=== PATIENT | female | born 1945 | race African-American/Black ===

== ENCOUNTER 2017-01-01 10:15 | Inpatient (IN) | payer BC, OTHER ==
[~2017-01-01] VITALS: Ht 165.1 cm; Wt 62.6 kg
[2017-01-01] MEDS ORDERED: FAMO40TA7 PO (10:21)
[2017-01-01] MEDS ORDERED: DIGO125T82 PO (10:21)
[2017-01-01] MEDS ORDERED: CITA20TA11 PO (10:21)
[2017-01-01] MEDS ORDERED: WARF5TAB73 PO (10:21)
[2017-01-01] MEDS ORDERED: MIDO2.5T PO (10:21)
[2017-01-01] MEDS ORDERED: ACET-2178 PO (10:21)
[2017-01-01] MEDS ORDERED: ATOR-2 PO (10:21)
[2017-01-01] MEDS ORDERED: ONDANSETRON HCL 4MG/2ML VIAL IV STA (10:46)
[2017-01-01] MEDS ORDERED: KETOROLAC 15MG/ML VIAL IV ONE (11:00)
[2017-01-01 11:31] LABS: BASOPHILS % 0.4 % (0.0-2.0); EOSINOPHILS % 1.8 % (0.0-5.0); HEMOGLOBIN. 13.4 g/dL (12.0-16.0); LYMPHOCYTES % 23.6 % (20.0-50.0); MEAN CORPUSCULAR HEMOGLOBIN 30.1 pg (28.0-32.0); MEAN CORPUSCULAR VOLUME 89.9 fL (81.0-99.0); MEAN PLATELET VOLUME 9.7 fl (7.4-10.4); MONOCYTES % 2.9 % (2.0-8.0); NEUTROPHILS % 71.3 % (40.0-76.0); PLATELET 196 x1000/uL (130-400); RED BLOOD CELL COUNT 4.45 mill/uL (4.2-5.4); RED CELL DISTRIBUTION WIDTH 14.2 % (11.6-14.6)
[2017-01-01 11:46] LABS: CARBON DIOXIDE 29 mEq/L (21-32); CHLORIDE 108 mEq/L (98-107); TROPONIN I < 0.02 ng/mL (0.00-0.04)
[2017-01-01 12:14] LABS: INR 3.5; PROTHROMBIN TIME 35.9 sec (9.4-11.6)
[2017-01-01] MEDS ORDERED: LORAZEPAM 2MG/ML CPJ IV PRN (15:30)
[2017-01-01] MEDS ORDERED: CLONIDINE 0.1MG TABLET PO PRN (15:30)
[2017-01-01] MEDS ORDERED: IPRATROPIUM/ALBUTEROL 0.5-3(2.5)MG/3ML NEB INH PRN (15:30)
[2017-01-01] MEDS ORDERED: DOCUSATE SODIUM 100MG CAPSULE PO PRN (15:30)
[2017-01-01] MEDS ORDERED: NA PHOS,M-B/NA PHOS,DI-BA ENEMA 118ML PR PRN (15:30)
[2017-01-01] MEDS ORDERED: DIPHENHYDRAMINE 50MG/ML VIAL IV PRN (15:30)
[2017-01-01] MEDS ORDERED: MAGNESIUM/ALUMINUM HYDROXIDE/SIMETHICONE 30ML UDC PO PRN (15:30)
[2017-01-01] MEDS ORDERED: MORPHINE SULFATE 2 MG/ML CPJ (NOT FOR IM USE) IV PRN ×2 (15:30→16:30)
[2017-01-01] MEDS ORDERED: ONDANSETRON HCL 4MG/2ML VIAL IV PRN (15:30)
[2017-01-01] MEDS ORDERED: GUAIFENESIN 200MG/10ML SUGAR FREE UDC PO PRN (15:30)
[2017-01-01 16:10] VITALS: BP 94/55
[2017-01-01] MEDS ORDERED: HYDROCODONE/ACETAMINOPHEN 10/325MG TABLET PO PRN (17:15)
[2017-01-01] MEDS ORDERED: MORPHINE SULFATE 4 MG/ML CPJ (NOT FOR IM USE) IV PRN (17:45)
[2017-01-01] MEDS: DIGOXIN 125MCG TABLET PO SCH (18:00)
[2017-01-01] MEDS: TRAMADOL 50MG TABLET PO PRN (18:47)
[2017-01-01 19:34] VITALS: BP 97/60
[2017-01-01] MEDS ORDERED: ZOLPIDEM TARTRATE 5MG TABLET PO PRN (20:30)
[2017-01-01] MEDS: FAMOTIDINE 20MG/2ML VIAL IV SCH (20:39)
[2017-01-01] MEDS ORDERED: LEVE500T19 PO (21:21)
[2017-01-01] MEDS ORDERED: POTA10CA42 PO (21:29)
[2017-01-02] VITALS: BP 90/52
[2017-01-02 04:00] VITALS: BP 93/55
[2017-01-02] MEDS: TRAMADOL 50MG TABLET PO PRN (06:42)
[2017-01-02 08:00] VITALS: BP 105/51
[2017-01-02] MEDS ORDERED: ZINC SULFATE 220 MG ( 50 ) CAPSULE PO SCH (09:00)
[2017-01-02] MEDS: FAMOTIDINE 20MG/2ML VIAL IV SCH (09:05)
[2017-01-02 11:41] LABS: INR 3.8; PROTHROMBIN TIME 39.2 sec (9.4-11.6)
[2017-01-02 12:00] VITALS: BP 91/58
[2017-01-02 16:05] VITALS: BP 89/51
[2017-01-02] MEDS: ACETAMINOPHEN 325MG TABLET PO PRN ×2 (16:21→19:51)
[2017-01-02 17:59] VITALS: BP 89/51
[2017-01-02] MEDS: DIGOXIN 125MCG TABLET PO SCH (18:55)
[2017-01-02 20:02] LABS: CLARITY URINE TURBID (CLEAR); COLOR URINE ORANGE (YELLOW); GLUCOSE URINE NEGATIVE (NEGATIVE); KETONES URINE NEGATIVE (NEGATIVE); LEUKOCYTE ESTERASE URINE 2+ (NEGATIVE); NITRITE URINE NEGATIVE (NEGATIVE); OCCULT BLOOD URINE 2+ (NEGATIVE); PH URINE 5.5 (4.5-8.0); PROTEIN URINE 2+ (NEGATIVE); SPECIFIC GRAVITY URINE 1.027 (1.005-1.030)
== END 2017-01-02 20:00 | disposition short-term general hospital (02) | DRG 543 ==
LOC: ER 10:37 → 6EST 13:12 → ENRESERV 15:30 → 6EST 16:58
PROVIDERS: ADMIT Internal Medicine; ATTEND Internal Medicine
DX: M48.56XA Collapsed vertebra, not elsewhere classified, lumbar region, initial encounter for fracture (principal); I69.354 Hemiplegia and hemiparesis following cerebral infarction affecting left non-dominant side; I48.91 Unspecified atrial fibrillation; E11.9 Type 2 diabetes mellitus without complications; I10 Essential (primary) hypertension; E78.00 Pure hypercholesterolemia, unspecified; M81.0 Age-related osteoporosis without current pathological fracture; Z74.01 Bed confinement status; Z79.01 Long term (current) use of anticoagulants; Z86.718 Personal history of other venous thrombosis and embolism; Z88.6 Allergy status to analgesic agent; Z79.899 Other long term (current) drug therapy
CPT/HCPCS: 36415; 71010; 72100; 72148; 80053; 80061; 81001; 82652; 83036; 83880; 84484; 85025; 85610; 87086; 93005; 96374; 96375; 99285; J1885; J2405; J3490

== ENCOUNTER 2019-07-20 10:00 | Inpatient (IN) | payer OTHER ==
[~2019-07-20] VITALS: Ht 165.1 cm; Wt 56.3 kg
[~2019-07-20 10:00] MED LIST: ATOR-2 PO; CITA20TA75 PO; DIGO125T PO; FAMO40TA7 PO; LEVE500T19 PO; MIDO2.5T PO; POTA10CA42 PO; TOPUD PO; WARF-53 PO
[2019-07-20] MEDS ORDERED: PIPERACILLIN/TAZ 3.375G PREMIX 50 ML IV ONE (10:30)
[2019-07-20] MEDS ORDERED: LEVOFLOXACIN 750MG PREMIX 150 ML IV ONE (10:30)
[2019-07-20] MEDS ORDERED: SODIUM CHLORIDE 0.9% 1000ML BAG (SEPSIS BOLUS) IV ONE (10:30)
[2019-07-20 11:04] LABS: CHLORIDE 118 mEq/L (98-107)
[2019-07-20 11:05] LABS: BASOPHILS % 0.4 % (0.0-2.0); EOSINOPHILS % 0.1 % (0.0-5.0); HEMATOCRIT. 37.9 % (36.0-48.0); HEMOGLOBIN. 12.7 g/dL (12.0-16.0); LYMPHOCYTES % 10.8 % (20.0-50.0); MEAN CORPUSCULAR HEMOGLOBIN 30.7 pg (28.0-32.0); MEAN CORPUSCULAR VOLUME 91.3 fL (81.0-99.0); MEAN PLATELET VOLUME 10.4 fl (7.4-10.4); MONOCYTES % 6.1 % (2.0-8.0); NEUTROPHILS % 82.6 % (40.0-76.0); PLATELET 151 x1000/uL (130-400); RED BLOOD CELL COUNT 4.15 mill/uL (4.2-5.4)
[2019-07-20 13:25] LABS: D-DIMER 5.68 mg/L FEU (<0.50); INR 3.7; PROTHROMBIN TIME 38.8 sec (9.6-11.0)
[2019-07-20 15:42] LABS: CLARITY URINE CLOUDY (CLEAR); COLOR URINE YELLOW (YELLOW); KETONES URINE NEGATIVE (NEGATIVE); LEUKOCYTE ESTERASE URINE 2+ (NEGATIVE); NITRITE URINE POSITIVE (NEGATIVE); OCCULT BLOOD URINE 3+ (NEGATIVE); PH URINE 7.5 (4.5-8.0); PROTEIN URINE 2+ (NEGATIVE); SPECIFIC GRAVITY URINE 1.022 (1.005-1.030)
[2019-07-20] MEDS ORDERED: LEVETIRACETAM 500 MG in SODIUM CHLORIDE 0.9% 100 ML IV SCH (19:15)
[2019-07-20] MEDS ORDERED: ONDANSETRON HCL 4MG/2ML INJ IV PRN (19:15)
[2019-07-20] MEDS ORDERED: ACETAMINOPHEN 325MG TABLET PO PRN ×2 (19:15)
[2019-07-20] MEDS: DEXT 5%/0.2% NACL 1,000 ML IV SCH (19:15)
[2019-07-20] MEDS ORDERED: DIPHENHYDRAMINE 50MG/ML VIAL IV PRN (19:15)
[2019-07-20] MEDS ORDERED: ATORVASTATIN CALCIUM 40MG TABLET PO SCH (20:00)
[2019-07-20] MEDS ORDERED: AZITHROMYCIN 500 MG in DEXT 5% WATER 250 ML IV SCH (20:00)
[2019-07-20] MEDS ORDERED: FAMOTIDINE 20MG/2ML VIAL IV SCH (21:00)
[2019-07-20] MEDS: LEVETIRACETAM 500MG PREMIX 100 ML IV SCH (21:00)
[2019-07-20] MEDS ORDERED: NOREPINEPHRINE 4 MG in DEXT 5% WATER 246 ML IV ONE (21:45)
[2019-07-21] VITALS (60 sets, daily range): BP systolic 98–134; BP diastolic 44–86
[2019-07-21] MEDS: DEXT 5%/0.2% NACL 1,000 ML IV SCH ×2 (03:41→10:55)
[2019-07-21 05:18] LABS: HEMATOCRIT. 33.2 % (36.0-48.0); MEAN CORPUSCULAR HEMOGLOBIN 30.3 pg (28.0-32.0); MEAN CORPUSCULAR VOLUME 91.8 fL (81.0-99.0); PLATELET 117 x1000/uL (130-400); RED BLOOD CELL COUNT 3.62 mill/uL (4.2-5.4); RED CELL DISTRIBUTION WIDTH 14.3 % (11.6-14.6)
[2019-07-21 05:25] LABS: CHLORIDE 116 mEq/L (98-107)
[2019-07-21 05:36] LABS: PHOSPHORUS 2.9 mg/dL (2.5-4.9)
[2019-07-21 05:44] LABS: PROTHROMBIN TIME 87.5 sec (9.6-11.0)
[2019-07-21 06:44] LABS: INR 8.6
[2019-07-21] MEDS ORDERED: PHYTONADIONE 10MG/ML AMP SUBCUT SCH (07:00)
[2019-07-21] MEDS ORDERED: DEXTROSE 50% WATER 50ML SYRINGE IV PRN (07:00)
[2019-07-21] MEDS ORDERED: VANCOMYCIN 1 G PREMIX 200 ML IV SCH (09:00)
[2019-07-21] MEDS: CITALOPRAM HYDROBROMIDE 10MG TABLET PO SCH (09:55)
[2019-07-21] MEDS: FAMOTIDINE 20MG/2ML VIAL IV SCH (09:55)
[2019-07-21] MEDS: INSULIN LISPRO 100 UNITS/ML SUBCUT SCH ×5 (09:56→21:00)
[2019-07-21] MEDS: LEVETIRACETAM 500MG PREMIX 100 ML IV SCH ×2 (10:55→23:35)
[2019-07-21] MEDS: BLOOD SUGAR DIAGNOSTIC STRIP TEST SCH ×3 (11:30→21:00)
[2019-07-21 13:56] LABS: PLATELET ESTIMATE DECREASED
[2019-07-21] MEDS: CEFTRIAXONE 1 G PREMIX 50 ML IV SCH (17:58)
[2019-07-21] MEDS ORDERED: AZITHROMYCIN 500 MG in DEXT 5% WATER 250 ML IV SCH (20:00)
[2019-07-21] MEDS: ATORVASTATIN CALCIUM 40MG TABLET PO SCH ×2 (21:00→22:46)
[2019-07-21] MEDS: DIGOXIN 500MCG/2ML AMP IV SCH (22:46)
[2019-07-21] MEDS: AZITHROMYCIN 250 MG in DEXT 5% WATER 250 ML IV SCH (23:35)
[2019-07-22] VITALS: BP 99/65
[2019-07-22 04:00] VITALS: BP 101/64
[2019-07-22] MEDS: BLOOD SUGAR DIAGNOSTIC STRIP TEST SCH ×4 (06:58→21:21)
[2019-07-22] MEDS: INSULIN LISPRO 100 UNITS/ML SUBCUT SCH ×4 (07:10→21:00)
[2019-07-22 08:00] VITALS: BP 104/53
[2019-07-22] MEDS: FAMOTIDINE 20MG/2ML VIAL IV SCH (10:38)
[2019-07-22] MEDS: CITALOPRAM HYDROBROMIDE 10MG TABLET PO SCH (10:38)
[2019-07-22] MEDS: LEVETIRACETAM 500MG PREMIX 100 ML IV SCH ×2 (12:44→21:21)
[2019-07-22] MEDS ORDERED: VANCOMYCIN 1,000 MG in DEXT 5% WATER 250 ML IV SCH (14:00)
[2019-07-22] MEDS: DEXT 5%/0.2% NACL 1,000 ML IV SCH ×2 (14:47→19:04)
[2019-07-22 16:00] VITALS: BP 103/72
[2019-07-22 16:18] LABS: INR 1.5
[2019-07-22] MEDS: DIGOXIN 500MCG/2ML AMP IV SCH (17:01)
[2019-07-22] MEDS: CEFTRIAXONE 1 G PREMIX 50 ML IV SCH (17:03)
[2019-07-22 17:07] LABS: HEMATOCRIT. 35.4 % (36.0-48.0); HEMOGLOBIN. 11.9 g/dL (12.0-16.0); MEAN CORPUSCULAR VOLUME 95.2 fL (81.0-99.0); MEAN PLATELET VOLUME 11.9 fl (7.4-10.4); PLATELET 96 x1000/uL (130-400); RED BLOOD CELL COUNT 3.72 mill/uL (4.2-5.4); RED CELL DISTRIBUTION WIDTH 14.5 % (11.6-14.6)
[2019-07-22 20:00] VITALS: BP 109/70
[2019-07-22] MEDS: AZITHROMYCIN 250 MG in DEXT 5% WATER 250 ML IV SCH (21:21)
[2019-07-22 22:33] LABS: PLATELET ESTIMATE DECREASED
[2019-07-23] VITALS: BP 104/74
[2019-07-23] MEDS: DEXT 5%/0.2% NACL 1,000 ML IV SCH ×2 (02:44→11:57)
[2019-07-23 04:00] VITALS: BP 110/76
[2019-07-23 06:26] LABS: BASOPHILS % 0.2 % (0.0-2.0); EOSINOPHILS % 1.8 % (0.0-5.0); HEMATOCRIT. 32.2 % (36.0-48.0); HEMOGLOBIN. 11.2 g/dL (12.0-16.0); LYMPHOCYTES % 7.5 % (20.0-50.0); MEAN CORPUSCULAR HEMOGLOBIN 31.4 pg (28.0-32.0); MEAN CORPUSCULAR VOLUME 90.6 fL (81.0-99.0); MEAN PLATELET VOLUME 11.2 fl (7.4-10.4); MONOCYTES % 4.3 % (2.0-8.0); NEUTROPHILS % 86.2 % (40.0-76.0); PLATELET 91 x1000/uL (130-400); RED BLOOD CELL COUNT 3.55 mill/uL (4.2-5.4); RED CELL DISTRIBUTION WIDTH 14.1 % (11.6-14.6)
[2019-07-23 06:27] LABS: INR 1.3; PROTHROMBIN TIME 14.3 sec (9.6-11.0)
[2019-07-23] MEDS: BLOOD SUGAR DIAGNOSTIC STRIP TEST SCH ×3 (06:38→17:20)
[2019-07-23] MEDS: INSULIN LISPRO 100 UNITS/ML SUBCUT SCH ×3 (06:38→17:40)
[2019-07-23 08:00] VITALS: BP 110/76
[2019-07-23] MEDS: CITALOPRAM HYDROBROMIDE 10MG TABLET PO SCH (08:57)
[2019-07-23] MEDS: LEVETIRACETAM 500MG PREMIX 100 ML IV SCH (08:57)
[2019-07-23] MEDS: FAMOTIDINE 20MG/2ML VIAL IV SCH (08:57)
[2019-07-23 12:00] VITALS: BP 102/71
[2019-07-23 16:00] VITALS: BP 103/74
[2019-07-23] MEDS ORDERED: DIGOXIN 125MCG TABLET PO SCH (18:00)
[2019-07-23 20:41] VITALS: BP 99/76
[2019-07-23] MEDS ORDERED: LEVETIRACETAM 500MG/5ML CUP PO SCH (21:00)
[2019-07-24] MEDS ORDERED: FAMOTIDINE 20MG TABLET PO SCH (21:00)
== END 2019-07-23 21:40 | disposition short-term general hospital (02) | DRG 871 ==
LOC: ER 10:00 → MICUNO 13:06 → ENRESERV 20:26 → CANRESERV 20:26 → EDBEDREQSVC 21:44 → ENRESERV 22:40 → 7EST 07-21 16:13 → 6WST 07-23 13:15
PROVIDERS: ADMIT Internal Medicine; ATTEND Internal Medicine
PROC: 02HV33Z Insertion of Infusion Device into Superior Vena Cava, Percutaneous Approach (ICD-10-PCS; principal; 2019-07-20)
PROC: B548ZZA Ultrasonography of Superior Vena Cava, Guidance (ICD-10-PCS; 2019-07-20)
DX: A41.59 Other Gram-negative sepsis (principal); E43 Unspecified severe protein-calorie malnutrition; G93.41 Metabolic encephalopathy; J18.9 Pneumonia, unspecified organism; D68.9 Coagulation defect, unspecified; E87.0 Hyperosmolality and hypernatremia; E87.1 Hypo-osmolality and hyponatremia; I48.20 Chronic atrial fibrillation, unspecified; N17.9 Acute kidney failure, unspecified; N39.0 Urinary tract infection, site not specified; I69.354 Hemiplegia and hemiparesis following cerebral infarction affecting left non-dominant side; D64.9 Anemia, unspecified; D69.6 Thrombocytopenia, unspecified; D72.810 Lymphocytopenia; E11.9 Type 2 diabetes mellitus without complications; E78.00 Pure hypercholesterolemia, unspecified; E78.5 Hyperlipidemia, unspecified; K21.9 Gastro-esophageal reflux disease without esophagitis; F32.9 Major depressive disorder, single episode, unspecified; R74.0 Nonspecific elevation of levels of transaminase and lactic acid dehydrogenase [LDH]; E86.0 Dehydration; R65.20 Severe sepsis without septic shock; Z20.828 Contact with and (suspected) exposure to other viral communicable diseases; Z78.9 Other specified health status; Z79.01 Long term (current) use of anticoagulants; Z90.710 Acquired absence of both cervix and uterus; Z68.20 Body mass index [BMI] 20.0-20.9, adult; Z88.5 Allergy status to narcotic agent; Z79.899 Other long term (current) drug therapy; Z98.891 History of uterine scar from previous surgery
CPT/HCPCS: 36415; 71045; 80048; 80053; 81003; 82728; 82962; 83036; 83605; 83735; 83880; 84100; 84145; 84484; 85025; 85379; 86140; 87077; 87186; 87635; 93005; 99291; J0456; J0696; J1160; J1815; J1953; J1956; J2543; J3370; J3430; J3490; J7030; J7060

== ENCOUNTER 2019-11-27 13:56 | Inpatient (IN) | payer OTHER ==
[~2019-11-27] VITALS: Ht 165.1 cm; Wt 68.5 kg
[2019-11-27] MEDS ORDERED: CLOP75TA4 PO (13:58)
[2019-11-27] MEDS ORDERED: SODIUM CHLORIDE 0.9% 1000ML BAG (SEPSIS BOLUS) IV ONE (14:15)
[2019-11-27] MEDS ORDERED: ACETAMINOPHEN 650MG SUPP PR STA (14:15)
[2019-11-27] MEDS ORDERED: PIPERACILLIN/TAZ 3.375G PREMIX 50 ML IV ONE (14:15)
[2019-11-27 15:28] LABS: BASOPHILS % 0.6 % (0.0-2.0); EOSINOPHILS % 0.1 % (0.0-5.0); HEMATOCRIT. 42.8 % (36.0-48.0); HEMOGLOBIN. 14.4 g/dL (12.0-16.0); LYMPHOCYTES % 23.8 % (20.0-50.0); MEAN CORPUSCULAR HEMOGLOBIN 30.4 pg (28.0-32.0); MEAN CORPUSCULAR VOLUME 90.4 fL (81.0-99.0); MEAN PLATELET VOLUME 10.3 fl (7.4-10.4); NEUTROPHILS % 69.5 % (40.0-76.0); PLATELET 94 x1000/uL (130-400); RED BLOOD CELL COUNT 4.74 mill/uL (4.2-5.4); RED CELL DISTRIBUTION WIDTH 15.3 % (11.6-14.6)
[2019-11-27 15:34] LABS: CHLORIDE 101 mEq/L (98-107)
[2019-11-27 15:35] LABS: INR 1.3; PROTHROMBIN TIME 13.6 sec (9.6-11.0)
[2019-11-27 15:39] LABS: C REACTIVE PROTEIN QUANT 0.7 mg/L (0.0-3.0)
[2019-11-27] MEDS ORDERED: MAGNESIUM 2 G PREMIX 50 ML IV ONE (17:45)
[2019-11-27] MEDS ORDERED: KCL 10MEQ/50ML PREMIX 100 ML IV SCH (17:45)
[2019-11-27 17:59] LABS: CLARITY URINE TURBID (CLEAR); COLOR URINE DK YELLOW (YELLOW); KETONES URINE NEGATIVE (NEGATIVE); LEUKOCYTE ESTERASE URINE 2+ (NEGATIVE); NITRITE URINE NEGATIVE (NEGATIVE); OCCULT BLOOD URINE 3+ (NEGATIVE); PH URINE 7.5 (4.5-8.0); PROTEIN URINE 2+ (NEGATIVE); SPECIFIC GRAVITY URINE 1.015 (1.005-1.030)
[2019-11-27] MEDS ORDERED: MAGNESIUM/ALUMINUM HYDROXIDE/SIMETHICONE 30ML UDC PO PRN (19:00)
[2019-11-27] MEDS ORDERED: DEXTROSE 50% WATER 50ML SYRINGE IV PRN (19:00)
[2019-11-27] MEDS ORDERED: ZOLPIDEM TARTRATE 5MG TABLET PO PRN (19:00)
[2019-11-27] MEDS ORDERED: ACETAMINOPHEN 325MG TABLET PO PRN ×2 (19:00)
[2019-11-27] MEDS ORDERED: NITROGLYCERIN 0.4MG TABLET SL SL PRN (19:00)
[2019-11-27] MEDS ORDERED: ONDANSETRON HCL 4MG/2ML INJ IV PRN (19:00)
[2019-11-27] MEDS ORDERED: KETOROLAC 15MG/ML VIAL IV PRN (19:00)
[2019-11-27] MEDS ORDERED: DOCUSATE SODIUM 100MG CAPSULE PO PRN (19:00)
[2019-11-27] MEDS ORDERED: IPRATROPIUM/ALBUTEROL 0.5-3(2.5)MG/3ML NEB NEB PRN (19:00)
[2019-11-27] MEDS ORDERED: GUAIFENESIN 200MG/10ML SUGAR FREE UDC PO PRN (19:00)
[2019-11-27] MEDS ORDERED: POTASSIUM CHLORIDE 20MEQ TABLET SR PO NR (19:30)
[2019-11-27] MEDS: DEXT 5%/0.9% NACL KCL 20MEQ/L 1,000 ML IV SCH (19:39)
[2019-11-27 19:54] LABS: T4 FREE 1.07 ng/dL (0.76-1.46)
[2019-11-27] MEDS ORDERED: CEFTRIAXONE 1 G PREMIX 50 ML IV SCH (20:00)
[2019-11-27] MEDS: ENOXAPARIN 40MG/0.4ML SYR SUBCUT SCH (20:00)
[2019-11-27 20:19] LABS: FOLIC ACID (FOLATE) SERUM >20 ng/mL ng/mL (>5.38)
[2019-11-27 20:30] LABS: VITAMIN B12 SERUM 663 pg/mL (211-911)
[2019-11-27] MEDS: ASCORBIC ACID 500 MG TABLET PO SCH (21:00)
[2019-11-27] MEDS ORDERED: LEVOFLOXACIN 500MG PREMIX 100 ML IV SCH (21:00)
[2019-11-27] MEDS: FAMOTIDINE 20MG TABLET PO SCH (21:00)
[2019-11-27] MEDS: BLOOD SUGAR DIAGNOSTIC STRIP TEST SCH (21:00)
[2019-11-27] MEDS: INSULIN LISPRO 100 UNITS/ML SUBCUT SCH (21:00)
[2019-11-27] MEDS ORDERED: KCL 20MEQ/100ML PREMIX 100 ML IV ONE (22:00)
[2019-11-27 23:33] LABS: CREATINE KINASE MB FRACTION 2.5 ng/mL (0.5-3.6)
[2019-11-28 02:41] VITALS: BP 109/69
[2019-11-28] MEDS ORDERED: FAMO40TA7 PO (03:46)
[2019-11-28] MEDS ORDERED: ATOR-2 PO (03:47)
[2019-11-28] MEDS ORDERED: POTA20LI50 PO (03:47)
[2019-11-28] MEDS ORDERED: METR-167 PO (03:50)
[2019-11-28] MEDS ORDERED: CITA10SO PO (03:50)
[2019-11-28] MEDS ORDERED: LEVE250T2 PO (03:51)
[2019-11-28] MEDS ORDERED: DIGO125T2 PO (03:51)
[2019-11-28] MEDS ORDERED: MIDO2.5T PO (03:52)
[2019-11-28] MEDS: BLOOD SUGAR DIAGNOSTIC STRIP TEST SCH ×4 (07:40→21:42)
[2019-11-28 08:00] VITALS: BP 126/63
[2019-11-28] MEDS: INSULIN LISPRO 100 UNITS/ML SUBCUT SCH ×4 (08:10→21:00)
[2019-11-28] MEDS: ASCORBIC ACID 500 MG TABLET PO SCH ×2 (09:16→21:41)
[2019-11-28] MEDS: ZINC SULFATE 220 MG ( 50 ) CAPSULE PO SCH (09:16)
[2019-11-28] MEDS: CLOPIDOGREL 75MG TABLET PO SCH (09:16)
[2019-11-28] MEDS: FAMOTIDINE 20MG TABLET PO SCH ×2 (09:16→21:41)
[2019-11-28 09:49] LABS: *AMPHETAMINES SCREEN URINE NEGATIVE (NEGATIVE); *BARBITURATES SCREEN URINE NEGATIVE (NEGATIVE); *BENZODIAZEPINES SCREEN URINE NEGATIVE (NEGATIVE); *COCAINE SCREEN URINE NEGATIVE (NEGATIVE); CANNABINOID URINE SCREEN NEGATIVE (NEGATIVE); METHADONE URINE SCREEN NEGATIVE (NEGATIVE); OPIATES URINE SCREEN NEGATIVE (NEGATIVE)
[2019-11-28 09:51] LABS: PHENCYCLIDINE URINE SCREEN NEGATIVE (NEGATIVE)
[2019-11-28 12:00] VITALS: BP 124/64
[2019-11-28 16:00] VITALS: BP 142/79
[2019-11-28] MEDS: DEXT 5%/0.9% NACL KCL 20MEQ/L 1,000 ML IV SCH (17:28)
[2019-11-28 20:00] VITALS: BP 130/71
[2019-11-28] MEDS: ENOXAPARIN 40MG/0.4ML SYR SUBCUT SCH (20:00)
[2019-11-28 20:05] LABS: CREATINE KINASE MB FRACTION 5.8 ng/mL (0.5-3.6)
[2019-11-28] MEDS ORDERED: LEVOFLOXACIN 250MG PREMIX 50 ML IV SCH (21:00)
[2019-11-28] MEDS: LEVOFLOXACIN 250MG PREMIX 50 ML IV SCH (21:41)
[2019-11-28] MEDS: CEFTRIAXONE 1,000 MG in DEXTROSE 5% WATER 50 ML IV SCH (21:41)
[2019-11-29] VITALS: BP 111/61
[2019-11-29] MEDS: DEXT 5%/0.9% NACL KCL 20MEQ/L 1,000 ML IV SCH ×2 (03:37→13:02)
[2019-11-29] MEDS: BLOOD SUGAR DIAGNOSTIC STRIP TEST SCH ×4 (06:36→20:57)
[2019-11-29 09:03] VITALS: BP 126/67
[2019-11-29] MEDS: FAMOTIDINE 20MG TABLET PO SCH ×2 (09:17→20:56)
[2019-11-29] MEDS: CLOPIDOGREL 75MG TABLET PO SCH (09:17)
[2019-11-29] MEDS: ZINC SULFATE 220 MG ( 50 ) CAPSULE PO SCH (09:17)
[2019-11-29] MEDS: ASCORBIC ACID 500 MG TABLET PO SCH ×2 (09:19→20:56)
[2019-11-29] MEDS: INSULIN LISPRO 100 UNITS/ML SUBCUT SCH ×4 (09:20→20:57)
[2019-11-29 10:05] LABS: EOSINOPHILS % 0.5 % (0.0-5.0); HEMATOCRIT. 37.6 % (36.0-48.0); HEMOGLOBIN. 12.7 g/dL (12.0-16.0); LYMPHOCYTES % 7.3 % (20.0-50.0); MEAN CORPUSCULAR HEMOGLOBIN 30.5 pg (28.0-32.0); MEAN CORPUSCULAR VOLUME 89.9 fL (81.0-99.0); MONOCYTES % 4.5 % (2.0-8.0); NEUTROPHILS % 87.7 % (40.0-76.0); PLATELET 91 x1000/uL (130-400); RED BLOOD CELL COUNT 4.18 mill/uL (4.2-5.4)
[2019-11-29 10:17] LABS: INR 1.1; PROTHROMBIN TIME 11.6 sec (9.6-11.0)
[2019-11-29 10:33] LABS: CHLORIDE 117 mEq/L (98-107)
[2019-11-29] MEDS ORDERED: POTASSIUM CHLORIDE 20MEQ TABLET SR PO NR (12:37)
[2019-11-29] MEDS ORDERED: POTASSIUM CHLORIDE INJ 40 MEQ in DEXT 5% WATER 250 ML IV NR (14:00)
[2019-11-29 20:00] VITALS: BP 157/89
[2019-11-29] MEDS: ENOXAPARIN 40MG/0.4ML SYR SUBCUT SCH (20:00)
[2019-11-29] MEDS: CEFTRIAXONE 1,000 MG in DEXTROSE 5% WATER 50 ML IV SCH (20:55)
[2019-11-29] MEDS: LEVOFLOXACIN 250MG PREMIX 50 ML IV SCH (20:57)
[2019-11-29 21:31] VITALS: BP 157/89
== END 2019-11-29 22:30 | disposition short-term general hospital (02) | DRG 871 ==
LOC: ER 13:56 → EDBEDREQ 14:30 → MICUSO 21:24 → EDBEDREQTM 21:27 → EDBEDREQSVC 21:27 → EDBEDREQ 21:27 → 7WST 11-28 00:52 → 6WST 11-28 17:59
PROVIDERS: ADMIT Internal Medicine; ATTEND Internal Medicine
DX: A41.9 Sepsis, unspecified organism (principal); J18.9 Pneumonia, unspecified organism; G92 Toxic encephalopathy; N39.0 Urinary tract infection, site not specified; E11.9 Type 2 diabetes mellitus without complications; E78.00 Pure hypercholesterolemia, unspecified; D69.6 Thrombocytopenia, unspecified; Z20.828 Contact with and (suspected) exposure to other viral communicable diseases; I10 Essential (primary) hypertension; Z86.73 Personal history of transient ischemic attack (TIA), and cerebral infarction without residual deficits; Z79.02 Long term (current) use of antithrombotics/antiplatelets; Z79.4 Long term (current) use of insulin; Z88.5 Allergy status to narcotic agent; Z88.8 Allergy status to other drugs, medicaments and biological substances
CPT/HCPCS: 36415; 70551; 71045; 74176; 80048; 80053; 80061; 80305; 81003; 82550; 82553; 82607; 82746; 82962; 83036; 83540; 83550; 83605; 83735; 83880; 84145; 84439; 84443; 84484; 85025; 86140; 87635; 93005; 93970; 96365; 99285; J0696; J1650; J1815; J1956; J2543; J3475; J3480; J7030; J7060

== ENCOUNTER 2020-11-04 11:31 | Inpatient (IN) | payer OTHER ==
[~2020-11-04] VITALS: Ht 165.1 cm; Wt 56.7 kg
[~2020-11-04 11:31] MED LIST changes: +CITA10SO PO; -CITA20TA75 PO; +CLOP75TA4 PO; -DIGO125T PO; +DIGO125T2 PO; +LEVE250T2 PO; -LEVE500T19 PO; +METR-167 PO; -POTA10CA42 PO; +POTA20LI50 PO; -TOPUD PO; -WARF-53 PO
[2020-11-04] MEDS ORDERED: SODIUM CHLORIDE 0.9% 1000ML BAG (SEPSIS BOLUS) IV ONE (11:45)
[2020-11-04] MEDS ORDERED: ACETAMINOPHEN 650MG SUPP PR ONE (11:45)
[2020-11-04] MEDS ORDERED: CEFTRIAXONE 1 G PREMIX 50 ML IV ONE (11:45)
[2020-11-04 12:13] LABS: BG BASE EXCESS 0.2 mmol/L (-2.0-2.0); BG CARBOXYHEMOGLOBIN 0.3 % (0.5-1.5); BG DEOXYHEMOGLOBIN 0.4 % (0.0-5.0); BG FRACTION INSPIRED OXYGEN 100; BG HCO3 ACT 21.9 mmol/L (22.0-26.0); BG METHEMOGLOBIN 0.4 % (0.0-1.5); BG OXYGEN SATURATION 99.6 % (92.0-98.5); BG OXYHEMOGLOBIN 98.9 % (94.0-97.0); BG PCO2 27.6 mmHg (35.0-45.0); BG PH 7.518 (7.350-7.450); BG PO2 406.8 mmHg (75.0-100.0); BG SAMPLE SITE RIGHT RADIAL; BG TOTAL HEMOGLOBIN 13.3 g/dL (12.0-18.0); BG VENT MODE MASK - NRB
[2020-11-04 13:07] LABS: BASOPHILS % 0.6 % (0.0-2.0); EOSINOPHILS % 0.1 % (0.0-5.0); HEMATOCRIT. 35.2 % (36.0-48.0); HEMOGLOBIN. 12.3 g/dL (12.0-16.0); LYMPHOCYTES % 27.2 % (20.0-50.0); MEAN CORPUSCULAR HEMOGLOBIN 34.7 pg (28.0-32.0); MEAN CORPUSCULAR VOLUME 99.2 fL (81.0-99.0); MEAN PLATELET VOLUME 9.7 fl (7.4-10.4); MONOCYTES % 7.6 % (2.0-8.0); NEUTROPHILS % 64.5 % (40.0-76.0); PLATELET 115 x1000/uL (130-400); RED BLOOD CELL COUNT 3.55 mill/uL (4.2-5.4); RED CELL DISTRIBUTION WIDTH 14.7 % (11.6-14.6)
[2020-11-04 13:13] LABS: CHLORIDE 101 mEq/L (98-107)
[2020-11-04 13:15] LABS: INR 1.4
[2020-11-04 13:33] LABS: DIGOXIN < 0.1 ng/mL (0.9-2.0)
[2020-11-04] MEDS ORDERED: ACETAMINOPHEN 650MG/20.3ML UDC GT PRN ×2 (15:45)
[2020-11-04] MEDS ORDERED: IPRATROPIUM/ALBUTEROL 0.5-3(2.5)MG/3ML NEB NEB PRN (15:45)
[2020-11-04] MEDS ORDERED: GUAIFENESIN 200MG/10ML SUGAR FREE UDC GT PRN (15:45)
[2020-11-04] MEDS ORDERED: LORAZEPAM 2MG/ML CPJ IV PRN (15:45)
[2020-11-04] MEDS ORDERED: ONDANSETRON HCL 4MG/2ML INJ IV PRN (15:45)
[2020-11-04] MEDS: FAMOTIDINE 20MG/2ML VIAL IV SCH (17:46)
[2020-11-04] MEDS ORDERED: WARFARIN SODIUM 5MG TABLET PO SCH (18:30)
[2020-11-04] MEDS: SODIUM CHLORIDE 0.9% 1,000 ML IV SCH (18:35)
[2020-11-04] MEDS: DIGOXIN 500MCG/2ML AMP IV SCH (18:58)
[2020-11-04 21:00] VITALS: BP 93/48
[2020-11-04] MEDS: LEVETIRACETAM 500MG PREMIX 100 ML IV SCH (21:00)
[2020-11-04 21:08] LABS: CLARITY URINE CLOUDY (CLEAR); COLOR URINE YELLOW (YELLOW); KETONES URINE NEGATIVE (NEGATIVE); LEUKOCYTE ESTERASE URINE 3+ (NEGATIVE); NITRITE URINE NEGATIVE (NEGATIVE); OCCULT BLOOD URINE 3+ (NEGATIVE); PH URINE 7.5 (4.5-8.0); PROTEIN URINE 1+ (NEGATIVE); SPECIFIC GRAVITY URINE 1.006 (1.005-1.030)
[2020-11-04] MEDS: ATORVASTATIN CALCIUM 40MG TABLET GT SCH (23:46)
[2020-11-05] VITALS: BP 119/63
[2020-11-05] MEDS ORDERED: APIX5TAB MT (03:47)
[2020-11-05] MEDS ORDERED: CALC3.8S BOTHNSTRLS (03:47)
[2020-11-05 04:00] VITALS: BP 117/54
[2020-11-05] MEDS: SODIUM CHLORIDE 0.9% 1,000 ML IV SCH ×2 (05:05→18:01)
[2020-11-05 08:00] VITALS: BP 130/82
[2020-11-05] MEDS: LEVETIRACETAM 500MG PREMIX 100 ML IV SCH ×2 (09:55→22:17)
[2020-11-05] MEDS: FAMOTIDINE 20MG/2ML VIAL IV SCH (09:55)
[2020-11-05 12:00] VITALS: BP 138/49
[2020-11-05] MEDS ORDERED: DEXTROSE 50% WATER 50ML SYRINGE IV PRN (12:45)
[2020-11-05] MEDS ORDERED: CEFTRIAXONE 1 G PREMIX 50 ML IV SCH (13:00)
[2020-11-05] MEDS ORDERED: CEFTRIAXONE 1,000 MG in DEXTROSE 5% WATER 50 ML IV SCH (13:00)
[2020-11-05 13:07] LABS: BASOPHILS % 0.4 % (0.0-2.0); EOSINOPHILS % 0.8 % (0.0-5.0); HEMATOCRIT. 39.4 % (36.0-48.0); HEMOGLOBIN. 13.3 g/dL (12.0-16.0); LYMPHOCYTES % 16.7 % (20.0-50.0); MEAN CORPUSCULAR HEMOGLOBIN 33.9 pg (28.0-32.0); MEAN CORPUSCULAR VOLUME 100.2 fL (81.0-99.0); MEAN PLATELET VOLUME 10.2 fl (7.4-10.4); MONOCYTES % 3.8 % (2.0-8.0); NEUTROPHILS % 78.3 % (40.0-76.0); PLATELET 107 x1000/uL (130-400); RED BLOOD CELL COUNT 3.93 mill/uL (4.2-5.4); RED CELL DISTRIBUTION WIDTH 14.7 % (11.6-14.6)
[2020-11-05 13:19] LABS: INR 1.3; PROTHROMBIN TIME 13.7 sec (9.6-11.0)
[2020-11-05 13:21] LABS: CHLORIDE 109 mEq/L (98-107)
[2020-11-05 13:32] LABS: PHOSPHORUS 2.9 mg/dL (2.5-4.9)
[2020-11-05 16:00] VITALS: BP 119/67
[2020-11-05] MEDS ORDERED: WARFARIN SODIUM 5MG TABLET PO SCH (18:00)
[2020-11-05] MEDS: DIGOXIN 500MCG/2ML AMP IV SCH (18:00)
[2020-11-05 20:00] VITALS: BP 105/50
[2020-11-05] MEDS: ATORVASTATIN CALCIUM 40MG TABLET GT SCH (21:00)
[2020-11-05] MEDS ORDERED: KEPPSOL PO (21:42)
[2020-11-05] MEDS ORDERED: MIDO2.5T PO (21:43)
[2020-11-05] MEDS ORDERED: POTA20LI52 GT ×2 (21:45)
[2020-11-06] VITALS: BP 143/49
[2020-11-06 00:10] VITALS: BP 105/50
== END 2020-11-06 00:30 | disposition short-term general hospital (02) | DRG 871 ==
LOC: ER 11:31 → MICUSO 13:15 → EDBEDREQ 13:29 → EDBEDREQSVC 13:29 → 8WST 19:17
PROVIDERS: ADMIT Internal Medicine; ATTEND Internal Medicine
DX: A41.9 Sepsis, unspecified organism (principal); E43 Unspecified severe protein-calorie malnutrition; G93.41 Metabolic encephalopathy; E87.1 Hypo-osmolality and hyponatremia; I48.20 Chronic atrial fibrillation, unspecified; N39.0 Urinary tract infection, site not specified; I69.354 Hemiplegia and hemiparesis following cerebral infarction affecting left non-dominant side; G40.909 Epilepsy, unspecified, not intractable, without status epilepticus; R74.01 Elevation of levels of liver transaminase levels; Z20.822 Contact with and (suspected) exposure to COVID-19; E78.00 Pure hypercholesterolemia, unspecified; R00.1 Bradycardia, unspecified; F32.9 Major depressive disorder, single episode, unspecified; E11.9 Type 2 diabetes mellitus without complications; K21.9 Gastro-esophageal reflux disease without esophagitis; I10 Essential (primary) hypertension; Z68.20 Body mass index [BMI] 20.0-20.9, adult; Z88.5 Allergy status to narcotic agent; Z74.01 Bed confinement status; Z93.1 Gastrostomy status
CPT/HCPCS: 36415; 36600; 71045; 80053; 80162; 81003; 82375; 82805; 82962; 83036; 83605; 83735; 83880; 84100; 84145; 84484; 85025; 87077; 87186; 87426; 93005; 99291; J0696; J1160; J1953; J3490; J7030; J7060

== ENCOUNTER 2020-11-14 17:31 | Emergency (ER) | payer OTHER ==
[~2020-11-14] VITALS: Ht 165.1 cm; Wt 68.0 kg
[~2020-11-14 17:31] MED LIST changes: +APIX5TAB MT; +CALC3.8S BOTHNSTRLS; -CLOP75TA4 PO; -DIGO125T2 PO; +KEPPSOL PO; -LEVE250T2 PO; -METR-167 PO; -POTA20LI50 PO; +POTA20LI52 GT
[2020-11-14] MEDS ORDERED: LEVOFLOXACIN 750MG PREMIX 150 ML IV ONE (18:00)
[2020-11-14] MEDS ORDERED: VANCOMYCIN 1 G PREMIX 200 ML IV ONE (18:00)
[2020-11-14] MEDS ORDERED: SODIUM CHLORIDE 0.9% 1,000 ML IV ONE (18:00)
[2020-11-14] MEDS ORDERED: MIDAZOLAM HCL 100 MG in DEXT 5% WATER 80 ML IV ONE (18:00)
[2020-11-14] MEDS ORDERED: PIPERACILLIN/TAZ 3.375G PREMIX 50 ML IV ONE (18:00)
[2020-11-14] MEDS ORDERED: ACETAMINOPHEN 650MG SUPP PR ONE (18:00)
[2020-11-14] MEDS ORDERED: MIDAZOLAM HCL 100 MG in SODIUM CHLORIDE 0.9% 100 ML IV PRN (18:15)
[2020-11-14] MEDS ORDERED: METOPROLOL TARTRATE 5MG/5ML VIAL IV ONE (18:30)
[2020-11-14 18:38] LABS: BASOPHILS % 0.2 % (0.0-2.0); EOSINOPHILS % 0.3 % (0.0-5.0); HEMOGLOBIN. 8.6 g/dL (12.0-16.0); LYMPHOCYTES % 19.6 % (20.0-50.0); MEAN CORPUSCULAR HEMOGLOBIN 34.1 pg (28.0-32.0); MEAN CORPUSCULAR VOLUME 102.8 fL (81.0-99.0); MEAN PLATELET VOLUME 8.7 fl (7.4-10.4); MONOCYTES % 1.6 % (2.0-8.0); NEUTROPHILS % 78.3 % (40.0-76.0); PLATELET 73 x1000/uL (130-400); RED BLOOD CELL COUNT 2.53 mill/uL (4.2-5.4); RED CELL DISTRIBUTION WIDTH 15.2 % (11.6-14.6)
[2020-11-14 18:44] LABS: CHLORIDE 99 mEq/L (98-107)
[2020-11-14 18:47] LABS: CLARITY URINE CLOUDY (CLEAR); COLOR URINE DARK YELLOW (YELLOW); KETONES URINE NEGATIVE (NEGATIVE); LEUKOCYTE ESTERASE URINE 3+ (NEGATIVE); NITRITE URINE NEGATIVE (NEGATIVE); OCCULT BLOOD URINE 3+ (NEGATIVE); PROTEIN URINE 1+ (NEGATIVE); SPECIFIC GRAVITY URINE 1.014 (1.005-1.030)
[2020-11-14 18:47] LABS: ETHANOL BLOOD < 10 mg/dL; INR 1.8; PROTHROMBIN TIME 18.3 sec (9.6-11.0)
[2020-11-14 18:57] LABS: *AMPHETAMINES SCREEN URINE NEGATIVE (NEGATIVE); *BARBITURATES SCREEN URINE NEGATIVE (NEGATIVE)
[2020-11-14 18:58] LABS: *BENZODIAZEPINES SCREEN URINE NEGATIVE (NEGATIVE); *COCAINE SCREEN URINE NEGATIVE (NEGATIVE); CANNABINOID URINE SCREEN NEGATIVE (NEGATIVE); METHADONE URINE SCREEN NEGATIVE (NEGATIVE); OPIATES URINE SCREEN NEGATIVE (NEGATIVE); PHENCYCLIDINE URINE SCREEN NEGATIVE (NEGATIVE)
[2020-11-14 19:01] LABS: D-DIMER 35.2 mg/L FEU (<0.50)
[2020-11-14 19:07] LABS: BG BASE EXCESS -7.5 mmol/L (-2.0-2.0); BG CARBOXYHEMOGLOBIN 0.3 % (0.5-1.5); BG DEOXYHEMOGLOBIN 3.3 % (0.0-5.0); BG FRACTION INSPIRED OXYGEN 100; BG HCO3 ACT 17.8 mmol/L (22.0-26.0); BG METHEMOGLOBIN 0.4 % (0.0-1.5); BG OXYGEN SATURATION 96.7 % (92.0-98.5); BG PCO2 35.1 mmHg (35.0-45.0); BG PH 7.322 (7.350-7.450); BG PO2 101.4 mmHg (75.0-100.0); BG SAMPLE SITE RIGHT RADIAL; BG TOTAL HEMOGLOBIN 10.8 g/dL (12.0-18.0); BG VENT MODE VENT - AC
[2020-11-14] MEDS ORDERED: MAGNESIUM/ALUMINUM HYDROXIDE/SIMETHICONE 30ML UDC PO PRN (20:30)
[2020-11-14] MEDS ORDERED: NOREPINEPHRINE 8 MG in DEXT 5% WATER 242 ML IV PRN (20:30)
[2020-11-14] MEDS ORDERED: DEXT 5%/LACTATED RINGERS 1,000 ML IV SCH (20:30)
[2020-11-14] MEDS ORDERED: CLONIDINE 0.1MG TABLET PO PRN (20:30)
[2020-11-14] MEDS ORDERED: DOCUSATE SODIUM 100MG CAPSULE PO PRN (20:30)
[2020-11-14] MEDS ORDERED: GUAIFENESIN 200MG/10ML SUGAR FREE UDC PO PRN (20:30)
[2020-11-14] MEDS ORDERED: ONDANSETRON HCL 4MG/2ML INJ IV PRN (20:30)
[2020-11-14] MEDS ORDERED: DEXTROSE 50% WATER 50ML SYRINGE IV PRN (20:30)
[2020-11-14] MEDS ORDERED: ACETAMINOPHEN 325MG TABLET PO PRN ×2 (20:30)
[2020-11-14] MEDS ORDERED: INSULIN LISPRO 100 UNITS/ML SUBCUT SCH (21:00)
[2020-11-14] MEDS ORDERED: BLOOD SUGAR DIAGNOSTIC STRIP TEST SCH (21:00)
[2020-11-14] MEDS ORDERED: ALBUTEROL 6.7GM HFA INHALER ORI SCH (21:00)
[2020-11-14] MEDS ORDERED: NOREPINEPHRINE 8MG/250ML PMX 250 ML IV NR (21:00)
[2020-11-14 21:28] LABS: FOLIC ACID (FOLATE) SERUM >20 ng/mL ng/mL (>5.38)
[2020-11-14 21:38] LABS: VITAMIN B12 SERUM 1332 pg/mL (211-911)
[2020-11-14] MEDS ORDERED: WARFARIN SODIUM 3MG TABLET PO SCH (21:45)
[2020-11-14 22:00] LABS: FERRITIN 2079 ng/mL (10-291)
[2020-11-14 22:32] LABS: CREATINE KINASE MB FRACTION 1.5 ng/mL (0.5-3.6)
[2020-11-14] MEDS ORDERED: PHENYLEPHRINE 50 MG in DEXTROSE 5% WATER 250 ML IV PRN (23:45)
[2020-11-14] MEDS ORDERED: VASOPRESSIN 20 UNITS in SODIUM CHLORIDE 0.9% 100 ML IV PRN (23:45)
[2020-11-15] MEDS ORDERED: DILTIAZEM HCL 60MG TABLET PO SCH
[2020-11-15 00:09] VITALS: BP 94/48
[2020-11-15] MEDS ORDERED: VANCOMYCIN 1 G PREMIX 200 ML IV SCH (02:00)
[2020-11-15] MEDS ORDERED: PIPERACILLIN/TAZ 3.375G PREMIX 50 ML IV SCH (02:00)
[2020-11-15] MEDS ORDERED: SODIUM BICARBONATE 8.4% 1 MEQ/ML 50ML SYR IV ONE (08:26)
[2020-11-15] MEDS ORDERED: AMIODARONE HCL 50MG/ML 3ML VIAL IV ONE (08:26)
[2020-11-15] MEDS ORDERED: CALCIUM CHLORIDE 1GM/10ML SYR IV ONE (08:26)
[2020-11-15] MEDS ORDERED: EPINEPHRINE 0.1MG/ML (1:10,000) 10ML SYR ONE (08:26)
[2020-11-15] MEDS ORDERED: LEVETIRACETAM 500MG TABLET PO SCH (09:00)
[2020-11-15] MEDS ORDERED: PANTOPRAZOLE SODIUM 40 MG/VIAL IV SCH (09:00)
[2020-11-15] MEDS ORDERED: CLOPIDOGREL 75MG TABLET PO SCH (09:00)
[2020-11-15] MEDS ORDERED: ATORVASTATIN CALCIUM 40MG TABLET PO SCH (21:00)
== END 2020-11-15 00:21 ==
LOC: ER 17:31 → EDBEDREQSVC 19:03 → EDBEDREQ 19:11 → EDBEDREQTM 19:36 → EDBEDREQSVC 19:36 → ENRESERV 22:20 → ER 11-15 00:21 → CANBEDREQ 11-15 00:26
DX: J96.01 Acute respiratory failure with hypoxia (principal); I46.9 Cardiac arrest, cause unspecified; A41.9 Sepsis, unspecified organism; R65.20 Severe sepsis without septic shock; E87.2 Acidosis; I48.91 Unspecified atrial fibrillation; E11.9 Type 2 diabetes mellitus without complications; G40.909 Epilepsy, unspecified, not intractable, without status epilepticus; R79.89 Other specified abnormal findings of blood chemistry; E83.51 Hypocalcemia; E78.00 Pure hypercholesterolemia, unspecified; E87.1 Hypo-osmolality and hyponatremia; G93.41 Metabolic encephalopathy; I69.351 Hemiplegia and hemiparesis following cerebral infarction affecting right dominant side; E43 Unspecified severe protein-calorie malnutrition; I10 Essential (primary) hypertension; Z88.5 Allergy status to narcotic agent; Z93.1 Gastrostomy status; Z86.59 Personal history of other mental and behavioral disorders; Z20.822 Contact with and (suspected) exposure to COVID-19; Z79.899 Other long term (current) drug therapy; Z98.890 Other specified postprocedural states
CPT/HCPCS: 31500; 36415; 36600; 71045; 80053; 80061; 80305; 80320; 81003; 82375; 82550; 82553; 82607; 82728; 82746; 82805; 82962; 83036; 83540; 83550; 83605; 83615; 83690; 83880; 84145; 84484; 85025; 85379; 85384; 85610; 86850; 86900; 86901; 87040; 87077; 87086; 87186; 87426; 93005; 93970; 94002; 96372; 96374; 96375; 99291; J0282; J1815; J1956; J2250; J2543; J3370; J3490; J7030; J7050; J7060; G0480